=== PATIENT | male | born 1970 | race Hispanic/Latino ===

== ENCOUNTER 2025-02-01 07:59 | Emergency (ER) | payer SELFPAY | END 2025-02-01 09:55 | disposition home or self-care (01) | LOC: MADERS 07:59 | DX: S43.014A Anterior dislocation of right humerus, initial encounter (principal); S43.034A Inferior dislocation of right humerus, initial encounter; I10 Essential (primary) hypertension; W10.9XXA Fall (on) (from) unspecified stairs and steps, initial encounter | CPT/HCPCS: 23650; 96374; J2270; J2272 ==